=== PATIENT | female | born 1985 | race Asian ===

== ENCOUNTER 2017-07-06 08:37 | Inpatient (IN) | payer MEDICAID ==
[~2017-07-06] VITALS: Ht 162.6 cm; Wt 62.7 kg
[2017-07-06 08:54] VITALS: BP 112/77
[2017-07-06] MEDS ORDERED: PREN1TAB69 PO (09:01)
[2017-07-06] MEDS ORDERED: OXYTOCIN 30U/ 0.9% NaCL 500ML 500 ML IV ONE (11:46)
[2017-07-06] MEDS ORDERED: FENTANYL/BUPIV./NS/PF 250 ML EPIDCONT SCH ×2 (11:46→18:53)
[2017-07-06] MEDS ORDERED: NEWBORN KIT ONE (11:58)
[2017-07-06] MEDS ORDERED: MISOPROSTOL 200 MCG TABLET ONE (11:58)
[2017-07-06] MEDS ORDERED: LIDOCAINE-MPF 1%, 5ML ONE (11:58)
[2017-07-06] MEDS ORDERED: OXYTOCIN 30U/ 0.9% NaCL 500ML 500 ML ONE (11:59)
[2017-07-06] MEDS ORDERED: FENTANYL PF 100 MCG/2ML IVPush PRN (12:00)
[2017-07-06] MEDS ORDERED: TERBUTALINE 1 MG/ML, 1ML IVPush PRN (12:00)
[2017-07-06] MEDS ORDERED: LACTATED RINGERS 1,000 ML IVBOLUS PRN ×2 (12:00→19:00)
[2017-07-06] MEDS ORDERED: FENTANYL PF 100 MCG/2ML IV PRN ×2 (12:00→21:00)
[2017-07-06] MEDS: LACTATED RINGERS 1,000 ML IV SCH ×4 (12:25→22:01)
[2017-07-06 12:29] LABS: BASOPHILS # (AUTO) 0.05 x10^3/uL (0-0.1); BASOPHILS % (AUTO) 0 % (0-1); EOSINOPHILS # (AUTO) 0.22 x10^3/uL (0-0.4); EOSINOPHILS % (AUTO) 2 % (1-7); LYMPHOCYTES # (AUTO) 2.26 x10^3/uL (1-3.4); LYMPHOCYTES % (AUTO) 18 % (22-44); MD NO; MEAN CORPUSCULAR HEMOGLOBIN 26.5 pg (27.0-34.8); MEAN CORPUSCULAR HGB CONC 32.8 g/dL (32.4-35.8); MEAN CORPUSCULAR VOLUME 80.8 fL (80-100); MEAN PLATELET VOLUME 8.7 fL (7.4-10.4); MONOCYTES # (AUTO) 0.82 x10^3/uL (0.2-0.8); MONOCYTES % (AUTO) 6 % (2-9); NEUTROPHILS # (AUTO) 9.48 x10^3/uL (1.8-6.8); NEUTROPHILS % (AUTO) 74 % (42-75); PLATELET COUNT 368 x10^3/uL (130-400); RED BLOOD COUNT 4.45 x10^6/uL (3.82-5.3); RED CELL DISTRIBUTION WIDTH 16.3 % (9.6-15.2)
[2017-07-06] MEDS ORDERED: FENTANYL/BUPIV./NS/PF 250 ML EPIDCONT ONE (14:52)
[2017-07-06] MEDS ORDERED: BUPIVACAINE/PF 0.25% ONE (14:52)
[2017-07-06] MEDS ORDERED: LIDOCAINE/PF 1.5%-EPI 1:200K, 30ML ONE (15:01)
[2017-07-06] MEDS ORDERED: LACTATED RINGERS 1,000 ML IV SCH (18:53)
[2017-07-06] MEDS ORDERED: EPHEDRINE 50 MG/ML, 1ML IVPush PRN (19:00)
[2017-07-06] MEDS ORDERED: DIPHENHYDRAMINE 50 MG/ML, 1ML IVPush PRN ×2 (19:00→21:00)
[2017-07-06] MEDS ORDERED: NALOXONE 0.4 MG/ML, 1ML IVPush PRN (19:00)
[2017-07-06] MEDS ORDERED: ONDANSETRON 2MG/ML, 2ML IVPush PRN (19:00)
[2017-07-06] MEDS ORDERED: SODIUM CITRATE/CITRIC ACID 30 ML UDC ONE (19:05)
[2017-07-06] MEDS ORDERED: METOCLOPRAMIDE 5 MG/ML, 2ML ONE (19:10)
[2017-07-06] MEDS ORDERED: FENTANYL PF 100 MCG/2ML ONE (19:25)
[2017-07-06] MEDS ORDERED: CEFAZOLIN 1,000 MG ONE (19:25)
[2017-07-06] MEDS ORDERED: ROPIvacaine/PF 0.5%, 20 ML ONE (19:26)
[2017-07-06] MEDS ORDERED: EPHEDRINE 50 MG/ML, 1ML ONE (19:53)
[2017-07-06] MEDS ORDERED: OXYTOCIN 10 UNITS/ML, 1ML ONE (19:53)
[2017-07-06] MEDS: KETOROLAC 30 MG/1 ML IV SCH (20:30)
[2017-07-06] MEDS ORDERED: OXYcodone 5 MG/5 ML ORAL.SOL UDC PO PRN (21:00)
[2017-07-06] MEDS ORDERED: MORPHINE SULFATE 4 MG/ML, 1ML IVPush PRN (21:00)
[2017-07-06] MEDS ORDERED: MISOPROSTOL 200 MCG TABLET PR PRN (21:30)
[2017-07-06] MEDS ORDERED: IBUPROFEN 800 MG TABLET PO PRN (21:30)
[2017-07-06] MEDS ORDERED: GLYCERIN ADULT SUPP PR PRN (21:30)
[2017-07-06] MEDS ORDERED: METHYLERGONOVINE 0.2 MG/ML IM PRN (21:30)
[2017-07-06] MEDS ORDERED: CARBOPROST TROMETHAMINE 250 MCG/ML, 1ML IM PRN (21:30)
[2017-07-06] MEDS ORDERED: morphine SULFATE 10 MG/ML, 1ML IVPush PRN (21:30)
[2017-07-06] MEDS ORDERED: OXYcodone/APAP 5/325MG TABLET PO PRN (21:30)
[2017-07-06] MEDS ORDERED: ACETAMINOPHEN 325 MG TABLET PO PRN (21:30)
[2017-07-06] MEDS ORDERED: ONDANSETRON 2MG/ML, 2ML IV PRN (21:30)
[2017-07-06] MEDS ORDERED: BISACODYL 10 MG SUPP PR PRN (21:30)
[2017-07-06] MEDS ORDERED: METOCLOPRAMIDE 5 MG/ML, 2ML IV PRN (21:30)
[2017-07-06] MEDS: OXYTOCIN 30U/ 0.9% NaCL 500ML 500 ML IV SCH (22:03)
[2017-07-06] MEDS ORDERED: OXYcodone 5 MG/5 ML ORAL.SOL UDC ONE (22:10)
[2017-07-06 23:30] VITALS: BP 112/74
[2017-07-07 00:10] VITALS: BP 107/71
[2017-07-07] MEDS: OXYcodone/APAP 5/325MG TABLET PO PRN ×3 (00:28→10:02)
[2017-07-07] MEDS: LACTATED RINGERS 1,000 ML IV SCH ×2 (02:09→07:11)
[2017-07-07] MEDS: KETOROLAC 30 MG/1 ML IV SCH ×4 (03:04→21:12)
[2017-07-07 05:23] LABS: MEAN CORPUSCULAR HEMOGLOBIN 26.6 pg (27.0-34.8); MEAN CORPUSCULAR HGB CONC 33.2 g/dL (32.4-35.8); MEAN PLATELET VOLUME 8.4 fL (7.4-10.4); PLATELET COUNT 262 x10^3/uL (130-400); RED CELL DISTRIBUTION WIDTH 16.5 % (9.6-15.2)
[2017-07-07 05:30] VITALS: BP 106/68
[2017-07-07 07:02] LABS: MD YES
[2017-07-07 07:03] LABS: ANISOCYTOSIS 1+; BANDS%(MANUAL) 2 % (0-7); LYMPH#(MANUAL) 1.22 x10^3/uL (1-3.4); LYMPHS% (MANUAL) 8 % (22-44); MONOS#(MANUAL) 0.91 x10^3/uL (0.3-2.7); MONOS% (MANUAL) 6 % (2-9); SEG#(MANUAL) 12.77 x10^3/uL (1.8-6.8); SEGS% (MANUAL) 84 % (42-75)
[2017-07-07 07:04] LABS: <PLATELET ESTIMATE> ADEQUATE; <PLT MORPHOLOGY> NORMAL PLT MORPH; POLYCHROMASIA 1+
[2017-07-07] MEDS: OXYTOCIN 30U/ 0.9% NaCL 500ML 500 ML IV SCH (07:11)
[2017-07-07 07:20] VITALS: BP 102/67
[2017-07-07] MEDS ORDERED: OXYcodone IR 5MG TABLET PO PRN ×2 (07:30)
[2017-07-07] MEDS: DOCUSATE 100 MG CAPSULE PO PRN (08:18)
[2017-07-07] MEDS: PRENATAL VIT/IRON/FA 1 EACH TABLET PO SCH (08:18)
[2017-07-07] MEDS: FERROUS SULFATE 325 MG TABLET PO SCH ×3 (08:19→17:00)
[2017-07-07] MEDS ORDERED: METOCLOPRAMIDE 10MG TABLET PO PRN ×2 (10:00)
[2017-07-07] MEDS ORDERED: SIMETHICONE 80 MG CHEW TAB PO PRN (10:30)
[2017-07-07 12:30] VITALS: BP 105/67
[2017-07-07] MEDS ORDERED: ONDANSETRON 4 MG TABLET ONE (12:30)
[2017-07-07 16:24] VITALS: BP 127/79
[2017-07-07 19:15] VITALS: BP 121/74
[2017-07-08] MEDS: IBUPROFEN 600 MG TABLET PO PRN ×4 (03:29→22:24)
[2017-07-08 08:00] VITALS: BP 120/81
[2017-07-08] MEDS: FERROUS SULFATE 325 MG TABLET PO SCH ×3 (08:18→16:36)
[2017-07-08] MEDS: PRENATAL VIT/IRON/FA 1 EACH TABLET PO SCH (08:18)
[2017-07-08] MEDS: DOCUSATE 100 MG CAPSULE PO PRN ×2 (08:18→19:28)
[2017-07-08 19:00] VITALS: BP 127/85
[2017-07-08] MEDS ORDERED: DIPH,PERTUSS(ACELL),TET VAC/PF NC IM-VACC ONE (19:36)
[2017-07-09] MEDS: IBUPROFEN 600 MG TABLET PO PRN ×4 (04:11→23:21)
[2017-07-09 07:25] VITALS: BP 115/79
[2017-07-09] MEDS: DOCUSATE 100 MG CAPSULE PO PRN ×2 (08:12→23:21)
[2017-07-09] MEDS: FERROUS SULFATE 325 MG TABLET PO SCH ×3 (08:12→17:28)
[2017-07-09] MEDS: PRENATAL VIT/IRON/FA 1 EACH TABLET PO SCH (08:12)
[2017-07-09 21:40] VITALS: BP 119/80
[2017-07-10] MEDS: IBUPROFEN 600 MG TABLET PO PRN ×2 (05:58→11:53)
[2017-07-10 07:45] VITALS: BP 123/81
[2017-07-10] MEDS: DOCUSATE 100 MG CAPSULE PO PRN (07:56)
[2017-07-10] MEDS: PRENATAL VIT/IRON/FA 1 EACH TABLET PO SCH (07:56)
[2017-07-10] MEDS: FERROUS SULFATE 325 MG TABLET PO SCH ×2 (07:56→12:33)
[2017-07-10] MEDS ORDERED: IBUP-1222 PO (13:27)
== END 2017-07-10 14:05 | disposition home or self-care (01) | DRG 766 ==
LOC: LDOP 08:37 → LDIP 11:49 → 2NW 23:19
PROVIDERS: ADMIT Obstetrics & Gynecology Maternal & Fetal Medicine; ATTEND Obstetrics & Gynecology Maternal & Fetal Medicine
PROC: 10D00Z1 Extraction of Products of Conception, Low, Open Approach (ICD-10-PCS; principal; 2017-07-06)
PROC: 3E0E7GC Introduction of Other Therapeutic Substance into Products of Conception, Via Natural or Artificial Opening (ICD-10-PCS; 2017-07-06)
PROC: 10907ZC Drainage of Amniotic Fluid, Therapeutic from Products of Conception, Via Natural or Artificial Opening (ICD-10-PCS; 2017-07-06)
DX: O76 Abnormality in fetal heart rate and rhythm complicating labor and delivery (principal); O62.0 Primary inadequate contractions; O69.81X0 Labor and delivery complicated by cord around neck, without compression, not applicable or unspecified; Z37.0 Single live birth; Z3A.39 39 weeks gestation of pregnancy
CPT/HCPCS: 36415; 76819; 82803; 84112; 85025; 86850; 86900; 88307; J0690; J1885; J2795; J3010; J3490; J2590; J7120